=== PATIENT | female | born 1995 | race Caucasian/White ===

== ENCOUNTER 2018-11-09 04:55 | Inpatient (IN) | payer OTHER ==
[2018-11-09] MEDS: LACTATED RINGERS 1,000 ML IV SCH ×3 (06:00→09:33)
[2018-11-09 06:21] VITALS: RESP 16
[2018-11-09 06:26] LABS: Appearance,Urine Clear (Clear); Bilirubin,Urine Negative (Negative); Blood,Urine Trace (Negative); Color,Urine Light Yellow; Glucose,Urine (UA) Negative (Negative); Ketones,Urine Negative (Negative); Leukocyte Esterase,Urine Moderate (Negative); Mucus,Urine Rare /hpf; Nitrite,Urine Negative (Negative); PH, Urine 6.5 (5.0-8.0); Protein,Urine Negative (Negative); RBC,Urine 8 /hpf (0-5); Specific Gravity,Urine 1.009 (1.001-1.035); Squamous Epithelial Cell,Urine 1 /hpf (0-4); Urobilinogen,Urine <2.0 mg/dL (<2.0); WBC,Urine 24 /hpf (0-5)
[2018-11-09 06:54] LABS: Anisocytosis Slight; Basophils % (A) 0 %; Eosinophils # (A) 0.1 k/uL (0-0.7); Eosinophils % (A) 1 %; HCT 30.7 % (34.0-46.0); HGB 9.3 gm/dL (11.4-16.0); Hypochromasia Marked; Lymphocytes # (A) 1.8 k/uL (1.0-4.8); Lymphocytes % (A) 15 %; MCH 21.1 pg (25.0-35.0); MCHC 30.5 g/dL (31.0-37.0); MCV 69.4 fL (80.0-100.0); Mean Platelet Volume 8.3; Microcytosis Marked; Monocytes # (A) 0.6 k/uL (0-1.0); Monocytes % (A) 5 %; Neutrophils # (A) 9.7 k/uL (1.3-7.7); Neutrophils % (A) 78 %; Platelet Count 289 k/uL (150-450); Poikilocytosis Slight; RBC 4.42 m/uL (3.80-5.40); RDW 16.1 % (11.5-15.5); WBC 12.4 k/uL (4.0-11.0)
[2018-11-09 06:56] LABS: Amphetamine Screen,Urine Not Detected (NotDetected); Barbiturate Screen,Urine Not Detected (NotDetected); Benzodiazepines Screen,Urine Not Detected (NotDetected); Cocaine Screen,Urine Not Detected (NotDetected); Methadone Screen, Urine Not Detected (NotDetected); Opiate Screen,Urine Not Detected (NotDetected); Oxycodone Screen, Urine Not Detected (NotDetected); Phencyclidine Screen,Urine Not Detected (NotDetected); Tricyclic Antidepressant,Urine Not Detected (NotDetected); Urn Cannabinoid Scrn Detected (NotDetected)
[2018-11-09 07:15] LABS: ALT 16 U/L (9-52); AST 20 U/L (14-36); African American GFR (CKD) >90 (>60 ml/min/1.73 sqM); Blood Urea Nitrogen 6 mg/dL (7-17); Glucose 86 mg/dL (74-99); LDH 439 U/L (313-618); Uric Acid 4.1 mg/dL (3.7-7.4)
[2018-11-09] MEDS ORDERED: METHYLERGONOVINE 0.2 MG/ML 1 ML AMP IM PRN (07:38)
[2018-11-09] MEDS ORDERED: OXYTOCIN 10 UNIT/ML 1 ML VIAL IM PRN (07:38)
[2018-11-09] MEDS ORDERED: LIDOCAINE 0.5% (PF) 5 MG/ML (50 ML SDV) SQ PRN (07:38)
[2018-11-09] MEDS ORDERED: CARBOPROST TROMETHAMINE 250 MCG/ML 1 ML AMP IM PRN (07:38)
[2018-11-09] MEDS ORDERED: TERBUTALINE 1 MG/ML VIAL SQ PRN (07:38)
[2018-11-09] MEDS ORDERED: PENICILLIN G POTASSIUM 5,000,000 UNIT in DEXTROSE 5% IN WATER 100 ML IVPB STA ×2 (07:38)
[2018-11-09] MEDS ORDERED: OXYTOCIN 30 UNITS/500 ML NS 30 UNIT in SALINE 1 500ML.BAG IV SCH (07:45)
[2018-11-09 08:16] VITALS: BMI 34.2
--- NOTE | 2018-11-09 08:24 | P.HPOB ---
History of Present Illness H&P Date: 11/09/18 Chief Complaint: Strong regular uterine contractions This is a 22-year-old white female 1 para 0 EDC 11/01/2018 at 41 and one sevenths weeks' gestation. Patient presents with limited care, last visit early July. She states she moved to [place] from [place] and was not able to establish with physician. She states fetus is been active throughout the . She denied any issues with her care. Past medical history patient states is negative. Past surgical history patient states is negative. Family history patient states is possible for "everyone in my family has cancer". She denies any personal history of cancer. Social history patient smokes tobacco 1 pack per day for 4 years. She also smokes marijuana 3 times a day which she states is for medicinal purposes. This is now prescribed by a physician but obtained socially. She is unmarried, the father of the baby is not involved with this . She is living currently in [facility] with a boyfriend. She denies alcohol use. history is unknown, records are being requested from [place]. On exam she is 5 foot 5 inches, 206 pounds, initial blood pressure is slightly high at 140s over 90s. She has 6 tattoos across her body,nursing and ear piercings. Hair is dyed green. Chest is clear in all nazario. Extremities reveal trace edema. Cervix is 3-4 cm dilated, 90% effaced, -2 station, vertex. Artificial amniorrhexis revealed clear fluid. heart rate is consistent with reactive NST. Uterine contractions are occurring every 3-4 minutes apart. Impression: 41 and one sevenths weeks intrauterine , limited care, active spontaneous labor. Initial blood pressure slightly elevated. Lab work otherwise essentially within normal limits. records have been requested from [place]. Plan: Penicillin G prophylaxis per hospital protocol. Oxytocin augmentation as needed. Close maternal and surveillance. Anticipate normal spontaneous vaginal delivery. Review of Systems Constitutional: Reports as per HPI Past Medical History Past Medical History: Hypertension History of Any Multi-Drug Resistant Organisms: None Reported Past Surgical History: No Surgical Hx Reported Past Anesthesia/Blood Transfusion Reactions: No Reported Reaction Past Psychological History: No Psychological Hx Reported Smoking Status: Current every day smoker - Past Family History Mother Family Medical History: Cancer Medications and Allergies Home Medications and Allergies Comment(s): Marijuana smoked 3 times daily. Patient states this is for medicinal purposes but she does not have a prescription from a physician. Home Medications Medication Instructions Recorded Confirmed Type No Known Home Medications 11/09/18 11/09/18 History Allergies Allergy/AdvReac Type Severity Reaction Status Date / Time No Known Allergies Allergy Verified 11/09/18 05:11 Exam Vital Signs Temp Pulse Resp BP Pulse Ox 11/09/18 07:46 97.4 F L 93 16 149/84 97 11/09/18 05:11 97.4 F L 86 16 141/93 Intake and Output 11/08/18 11/09/18 11/09/18 22:59 06:59 14:59 Other: Weight 93.44 kg See dictation under HPI please Results Result Diagrams: 11/09/18 06:25 11/09/18 06:25 Abnormal Lab Results - Last 24 Hours (Table) 11/09/18 11/09/18 11/09/18 Range/Units 05:46 05:46 06:25 WBC 12.4 H (4.0-11.0) k/uL Hgb 9.3 L (11.4-16.0) gm/dL Hct 30.7 L (34.0-46.0) % MCV 69.4 L (80.0-100.0) fL MCH 21.1 L (25.0-35.0) pg MCHC 30.5 L (31.0-37.0) g/dL RDW 16.1 H (11.5-15.5) % Neutrophils # 9.7 H (1.3-7.7) k/uL BUN (7-17) mg/dL Urine Blood Trace H (Negative) Ur Leukocyte Esterase Moderate H (Negative) Urine RBC 8 H (0-5) /hpf Urine WBC 24 H (0-5) /hpf Urine Mucus Rare H (None) /hpf U Marijuana (THC) Screen Detected H (NotDetected) 11/09/18 Range/Units 06:25 WBC (4.0-11.0) k/uL Hgb (11.4-16.0) gm/dL Hct (34.0-46.0) % MCV (80.0-100.0) fL MCH (25.0-35.0) pg MCHC (31.0-37.0) g/dL RDW (11.5-15.5) % Neutrophils # (1.3-7.7) k/uL BUN 6 L (7-17) mg/dL Urine Blood (Negative) Ur Leukocyte Esterase (Negative) Urine RBC (0-5) /hpf Urine WBC (0-5) /hpf Urine Mucus (None) /hpf U Marijuana (THC) Screen (NotDetected) Assessment and Plan Assessment: 41 and one sevenths week intrauterine , limited care. Marijuana smoker 3 times daily. Active labor. All signs otherwise reassuring. Plan: Close maternal and surveillance. Penicillin G per hospital protocol. Urine drug screen. convention services manager consult. records requested. Analgesic options reviewed. Anticipate normal spontaneous vaginal delivery. Time with Patient: Greater than 30
[2018-11-09] MEDS ORDERED: ROPIVACAINE 5MG/ML 20ML VIAL ONE (08:58)
[2018-11-09] MEDS ORDERED: SODIUM CHLORIDE 0.9% 100 ML BAG ONE (08:58)
[2018-11-09] MEDS ORDERED: fentaNYL (PF) 50 MCG/ML 5 ML AMP ONE (08:58)
[2018-11-09] MEDS ORDERED: ROPIVACAINE 100 MG, fentaNYL (PF) 200 MCG in SODIUM CHLORIDE 0.9% 76 ML EPIDURAL ONE (09:20)
[2018-11-09] MEDS: PENICILLIN G POTASSIUM 2,500,000 UNIT in DEXTROSE 5% IN WATER 100 ML IVPB SCH ×6 (12:46→20:33)
[2018-11-09 13:26] LABS: HIV 1 AB Non-Reactive (Non-Reactive); HIV AB P24 Non-Reactive (Non-Reactive); HIV P24 AG Non-Reactive (Non-Reactive)
[2018-11-09] MEDS ORDERED: ZOLPIDEM 5 MG TAB PO PRN (14:27)
[2018-11-09] MEDS ORDERED: IBUPROFEN 600 MG TAB PO PRN (14:27)
[2018-11-09] MEDS ORDERED: ACETAMINOPHEN TAB 325 MG TAB PO PRN (14:27)
[2018-11-09] MEDS ORDERED: HYDROCORTISONE 2.5% RECTAL CREAM 30 GM TUBE RECTAL PRN (14:27)
[2018-11-09] MEDS ORDERED: WITCH HAZEL 1 EACH MED..PAD TOPICAL PRN (14:27)
[2018-11-09] MEDS ORDERED: diphenhydrAMINE 25 MG CAP PO PRN (14:27)
[2018-11-09] MEDS ORDERED: SIMETHICONE 80 MG CHEWABLE PO PRN (14:27)
[2018-11-09] MEDS ORDERED: diphenhydrAMINE 50 MG/ML 1 ML VIAL IVP PRN ×2 (14:27)
[2018-11-09] MEDS ORDERED: diphenhydrAMINE 50 MG CAP PO PRN (14:27)
[2018-11-09] MEDS ORDERED: LANOLIN CREAM 5 GM TUBE TOPICAL PRN (14:27)
[2018-11-09] MEDS ORDERED: BENZOCAINE/MENTHOL SPRAY 1 GM/SPRAY AEROSOL TOPICAL PRN (14:27)
--- NOTE | 2018-11-09 14:27 | P.PROBDLV ---
Vaginal Delivery Note - . Vaginal Delivery Note: This is a 22-year-old white female 1 para 0 EDC 11/01/2018 at 41 and one sevenths weeks' gestation. Patient presented with limited care, no physician visits since July. She complained of strong regular uterine contractions and was judged to be in active labor. records were requested, and limited records received. Blood type A positive, rubella status nonimmune. Group B strep status unknown. Please see dictated history and physical for details. Artificial amniorrhexis revealed clear fluid. Initial blood pressures were slightly elevated, 149/84, but these normalized after admission. Penicillin G prophylaxis was given, 2 doses received. Patient requested epidural and this was placed without issue. She progressed well through the first stage of labor was judged to be completely dilated at 1350 hrs. Perineal body was prepped and draped in usual sterile fashion at that time. Patient was coached on pushing, and with excellent maternal expulsive efforts the infant's head delivered occiput anterior. She restituted accordingly. There was no nuchal cord noted. The right or anterior shoulder was gently delivered from underneath the pubic symphysis at which time the oropharynx, nasopharynx, and external nares were all bulb suctioned. Patient was officially delivered of a liveborn female infant at 1411 hours. Umbilical cord was doubly clamped and ligated, she was handed to waiting nurses for evaluation where scores of 8 and 9 at one and 5 minutes respectively were given. Placenta delivered spontaneously, it was inspected and noted to be intact with trivascular cord at 1414 hours. It was sent to pathology for evaluation as patient's care is unknown to me, and she is postdates. The placenta did have a calcified ring around its periphery per inspection. The uterus is massaged. Inspection of the cervix, vagina, perineum, periurethral, and perirectal areas revealed 2 small first-degree perineal lacerations on either labia. These were each repaired with a single [id number] of 3-0 Vicryl. Total estimated blood loss 250 mL's. Urine drug screen is positive for marijuana. visitor services assistant consult has been placed. care at this time. Possible discharge home tomorrow.
[2018-11-09] MEDS ORDERED: OXYTOCIN 20 UNITS/1000 ML NS 1,000 ML IV SCH (14:30)
[2018-11-09] MEDS ORDERED: MEASLES-MUMPS-RUBELLA VACC/PF 12,500 UNIT/0.5 ML VIAL SQ ONE (18:43)
[2018-11-09] MEDS ORDERED: SENNOSIDES-DOCUSATE SODIUM 1 EACH TAB PO SCH (20:00)
--- NOTE | 2018-11-10 07:52 | P.DS ---
Providers Date of admission: 11/09/18 07:27 Expected date of discharge: 11/10/18 Attending physician: Chelsea Landa Primary care physician: Stated None Hospital Course: This is a 22-year-old white female 1 para 0 EDC 11/01/2018 at 41 and one sevenths weeks' gestation. Patient had limited care in [place], last visit in July. She presents to me unknown, in active spontaneous labor. Her history is significant for marijuana use 3 times a day, substantiated by positive urine drug screen. records were obtained. Blood type A+, rubella status nonimmune. Group B strep status unknown. Please see dictated history and physical for details. Artificial amniorrhexis revealed clear fluid. Oxytocin was started and titrated per hospital protocol. Epidural was placed per her request. She went on to deliver vaginally a liveborn female infant with scores of 8 and 9 at one and 5 minutes respectively. Patient did receive 2 doses of penicillin G per our protocol, for unknown group B strep status. Infant weighed 7 lbs. 9 oz. or 3435 g. There was an estimated blood loss recorded of 250 mL's. A small first- degree perineal laceration easily repaired. Please see my dictated delivery note for details. This morning the patient is doing well. She is voiding, and bleeding, passing flatus without difficulty. Breast-feeding is going well. [place] infant has been seen by filter worker. dining services manager consult has been ordered but is still pending. Patient is otherwise judged to be in good condition for discharge home. Breasts are not engorged, perineum is clean and dry, lochia rubra is moderate, fundus is firm and midline, symmetric, 18 week size. Extremities are negative for edema. Patient will follow-up in the office with me in 6 weeks. I have reminded her no intercourse, tampons or douching. She will use [id number] Advil or Aleve as needed for pain. She will call with any fevers shakes or chills, foul smelling or copious lochia, with the passage of large blood clots, with any pain not alleviated by cqan-pis-qehkvye products, or indeed with any concerns. We have briefly reviewed options for contraception and we will review this further in the office. Patient Condition at Discharge: Good Plan - Discharge Summary Discharge Rx Participant: No New Discharge Prescriptions: No Action No Known Home Medications Discharge Medication List No Known Home Medications 11/09/18 [History] Follow up Appointment(s)/Referral(s): Chelsea Landa MD [STAFF PHYSICIAN] - 6 Weeks Discharge Disposition: HOME SELF-CARE
[2018-11-10 08:31] VITALS: BP 136/79; PULSE 88; TEMP 98.3
[2018-11-10 15:39] LABS: C. trachomatis,PCR Negative (Neg,Equiv); Chlamydia trachomatis Source Urine; N. gonorrhoeae,PCR Negative (Neg,Equiv); Neisseria Source Urine
== END 2018-11-10 16:08 | disposition home or self-care (01) | DRG 806 ==
LOC: FBPOP 04:55 → 4FBP 07:27
PROVIDERS: ADMIT Obstetrics & Gynecology; ATTEND Obstetrics & Gynecology
PROC: 10E0XZZ Delivery of Products of Conception, External Approach (ICD-10-PCS; principal; 2018-11-09)
PROC: 0HQ9XZZ Repair Perineum Skin, External Approach (ICD-10-PCS; 2018-11-09)
PROC: 00HU33Z Insertion of Infusion Device into Spinal Canal, Percutaneous Approach (ICD-10-PCS; 2018-11-09)
PROC: 3E0R3BZ Introduction of Anesthetic Agent into Spinal Canal, Percutaneous Approach (ICD-10-PCS; 2018-11-09)
PROC: 3E0134Z Introduction of Serum, Toxoid and Vaccine into Subcutaneous Tissue, Percutaneous Approach (ICD-10-PCS; 2018-11-09)
DX: O48.0 Post-term pregnancy (principal); O99.324 Drug use complicating childbirth; Z37.0 Single live birth; O10.92 Unspecified pre-existing hypertension complicating childbirth; Z3A.41 41 weeks gestation of pregnancy; O70.0 First degree perineal laceration during delivery; Z23 Encounter for immunization; F12.90 Cannabis use, unspecified, uncomplicated; O99.334 Smoking (tobacco) complicating childbirth; F17.210 Nicotine dependence, cigarettes, uncomplicated; Z80.9 Family history of malignant neoplasm, unspecified
CPT/HCPCS: 59025; 80306; 81001; 82565; 82947; 83615; 84112; 84450; 84460; 84520; 84550; 85025; 86762; 86780; 86850; 86900; 86901; 87340; 87390; 87491; 87591; 90471; 90707; 99213

== ENCOUNTER → 2019-07-07 | Outpatient (CLI) | payer OTHER ==
--- NOTE | 2019-07-07 09:01 | XR ---
EXAMINATION TYPE: XR lumbar spine 2 or 3V DATE OF EXAM: 07/07/2019 COMPARISON: None HISTORY: Low back pain TECHNIQUE: Three-view lumbar spine FINDINGS: There 5 lumbar-type vertebral bodies. Pedicles are intact. Disc heights are preserved. Vert ebral body heights are preserved. There is attempted sacralization of L5 on the left. IMPRESSION: 1. Normal lumbar spine
--- NOTE | 2019-07-07 15:32 | XR ---
EXAMINATION TYPE: XR cervical spine comp DATE OF EXAM: 07/07/2019 COMPARISON: None HISTORY: Five-view cervical spine TECHNIQUE: Cervical spine is examined in 5 views. FINDINGS: No acute fractures are evident. Disc heights are preserved. Vertebral body heights are pres erved. Foramen are patent. IMPRESSION: 1. Normal cervical spine.
== END | disposition home or self-care (01) ==
LOC: RADXRMAIN 07:48
PROVIDERS: ATTEND Nurse Practitioner Adult Health
DX: M54.12 Radiculopathy, cervical region (principal); M54.17 Radiculopathy, lumbosacral region
CPT/HCPCS: 72050; 72100

== ENCOUNTER 2020-03-18 11:31 | Emergency (ER) | payer OTHER ==
[2020-03-18 11:40] VITALS: BP 148/84; PULSE 94; RESP 20; TEMP 98.9
--- NOTE | 2020-03-18 11:47 | ED ---
General Adult HPI - General Chief complaint: Recheck/Abnormal Lab/Rx Stated complaint: needs work note Time Seen by Provider: 03/18/20 11:41 Source: patient, RN notes reviewed Mode of arrival: ambulatory Limitations: no limitations - History of Present Illness Initial comments: 24-year-old female presented emergency department with chief complaint of ne eding work note to return to work. Patient states she had a cough on Wednesday and was sent home. Patient states she is a smoker and has chronic cough she has no fever no chills no runny nose or shortness breath no bodyaches no sick contacts patient offers no other complaints. Patient is asymptomatic. - Related Data Home Medications Medication Instructions Recorded Confirmed No Known Home Medications 11/09/18 11/09/18 Allergies Allergy/AdvReac Type Severity Reaction Status Date / Time No Known Allergies Allergy Verified 03/18/20 11:39 Review of Systems ROS Statement: Those systems with pertinent positive or pertinent negative responses have been documented in the HPI. ROS Other: All systems not noted in ROS Statement are negative. Past Medical History Past Medical History: Hypertension History of Any Multi-Drug Resistant Organisms: None Reported Past Surgical History: No Surgical Hx Reported Past Anesthesia/Blood Transfusion Reactions: No Reported Reaction Past Psychological History: No Psychological Hx Reported Smoking Status: Current every day smoker Past Alcohol Use History: None Reported Past Drug Use History: Marijuana - Past Family History Mother Family Medical History: Cancer General Exam Limitations: no limitations General appearance: alert, in no apparent distress Head exam: Present: atraumatic, normocephalic, normal inspection Eye exam: Present: normal appearance, PERRL, EOMI. Absent: scleral icterus, conjunctival injection, periorbital swelling ENT exam: Present: normal exam, normal oropharynx, mucous membranes moist Neck exam: Present: normal inspection, full ROM. Absent: tenderness, meningismus, lymphadenopathy Respiratory exam: Present: normal lung sounds bilaterally. Absent: respiratory distress, wheezes, rales, rhonchi, stridor Cardiovascular Exam: Present: regular rate, normal rhythm, normal heart sounds. Absent: systolic murmur, diastolic murmur, rubs, gallop, clicks Course Vital Signs 03/18/20 11:37 Temperature 98.9 F Pulse Rate 94 Respiratory 20 Rate Blood Pressure 148/84 O2 Sat by Pulse 99 Oximetry Medical Decision Making - Medical Decision Making Patient was asymptomatic has no signs of infection. Patient will return to work today. Disposition Clinical Impression: Return to work evaluation Disposition: HOME SELF-CARE Condition: Stable Additional Instructions: Please return to the Emergency Department if symptoms worsen or any other concerns. Is patient prescribed a controlled substance at d/c from ED?: No Referrals: None,Stated [Primary Care Provider] - 1-2 days Time of Disposition: 11:47
== END 2020-03-18 11:56 | disposition home or self-care (01) ==
LOC: EC 11:31
DX: Z02.1 Encounter for pre-employment examination (principal); F17.200 Nicotine dependence, unspecified, uncomplicated
CPT/HCPCS: 99282

== ENCOUNTER 2021-01-13 09:38 | Inpatient (IN) | payer OTHER ==
[2021-01-13] MEDS ORDERED: OXYTOCIN 10 UNIT/ML 1 ML VIAL IM PRN (10:19)
[2021-01-13] MEDS ORDERED: LIDOCAINE 0.5% (PF) 5 MG/ML (50 ML SDV) SQ PRN (10:19)
[2021-01-13] MEDS ORDERED: TERBUTALINE 1 MG/ML VIAL SQ PRN (10:19)
[2021-01-13] MEDS ORDERED: CARBOPROST TROMETHAMINE 250 MCG/ML 1 ML AMP IM PRN (10:19)
[2021-01-13] MEDS ORDERED: METHYLERGONOVINE 0.2 MG/ML 1 ML AMP IM PRN (10:19)
[2021-01-13] MEDS ORDERED: OXYTOCIN 30 UNITS/500 ML NS 30 UNIT in SALINE 1 500ML.BAG IV SCH ×2 (10:30→15:15)
[2021-01-13 11:46] LABS: Anisocytosis Slight; Basophils % (A) 0 %; Eosinophils # (A) 0.1 k/uL (0-0.7); Eosinophils % (A) 1 %; HGB 11.1 gm/dL (11.4-16.0); Hypochromasia Moderate; Lymphocytes # (A) 1.5 k/uL (1.0-4.8); Lymphocytes % (A) 12 %; MCH 23.4 pg (25.0-35.0); MCHC 31.7 g/dL (31.0-37.0); MCV 73.8 fL (80.0-100.0); Mean Platelet Volume 8.4; Microcytosis Slight; Monocytes # (A) 0.7 k/uL (0-1.0); Monocytes % (A) 6 %; Neutrophils # (A) 10.1 k/uL (1.3-7.7); Neutrophils % (A) 80 %; Platelet Count 289 k/uL (150-450); Poikilocytosis Slight; RBC 4.75 m/uL (3.80-5.40); RDW 16.9 % (11.5-15.5); WBC 12.6 k/uL (3.8-10.6)
[2021-01-13] MEDS ORDERED: ROPIVACAINE 5MG/ML 20ML VIAL ONE (12:03)
[2021-01-13] MEDS ORDERED: fentaNYL (PF) 50 MCG/ML 5 ML AMP ONE (12:03)
[2021-01-13] MEDS ORDERED: SODIUM CHLORIDE 0.9% 100 ML BAG ONE (12:03)
[2021-01-13] MEDS ORDERED: ROPIVACAINE 100 MG, fentaNYL (PF). 200 MCG in SODIUM CHLORIDE 0.9% 76 ML EPIDURAL ONE (12:37)
[2021-01-13] MEDS ORDERED: HYDROCORTISONE 2.5% RECTAL CREAM 30 GM TUBE RECTAL PRN (15:01)
[2021-01-13] MEDS ORDERED: BENZOCAINE/MENTHOL SPRAY 1 GM/SPRAY AEROSOL TOPICAL PRN (15:01)
[2021-01-13] MEDS ORDERED: SIMETHICONE 80 MG CHEWABLE PO PRN (15:01)
[2021-01-13] MEDS ORDERED: diphenhydrAMINE 50 MG CAP PO PRN (15:01)
[2021-01-13] MEDS ORDERED: diphenhydrAMINE 50 MG/ML 1 ML VIAL IVP PRN ×2 (15:01)
[2021-01-13] MEDS ORDERED: HYDROcodone/APAP 5-325MG 1 EACH TAB PO PRN (15:01)
[2021-01-13] MEDS ORDERED: HYDROcodone/APAP 7.5-325MG 1 EACH TAB PO PRN (15:01)
[2021-01-13] MEDS ORDERED: ZOLPIDEM 5 MG TAB PO PRN (15:01)
[2021-01-13] MEDS ORDERED: diphenhydrAMINE 25 MG CAP PO PRN (15:01)
--- NOTE | 2021-01-13 15:06 | P.HPOB ---
History of Present Illness H&P Date: 01/13/21 Chief Complaint: 41-0/7 weeks, early labor The patient is a 25-year-old 3 para 1011 admitted at 41-0/7 weeks as established by a 23 week ultrasound. She is admitted in early active labor with all signs reassuring in the category 1 heart rate tracing. Her was complicated only by late presentation for care at 23 weeks. She additionally was a smoker and admitted to marijuana during the . Group B strep status is negative. Obstetrical history: 3 para 1011 with 1 term vaginal delivery in 1 early miscarriage not requiring D&C. Current statistics are listed in history of present illness. EDC of 01/06/2021 was established by 23 week ultrasound. Laboratory workup demonstrates a blood type of A+ with a negative antibody screen. Rubella status is immune. The remainder of the laboratory workups within normal limits. One hour Glucola was normal and group B strep status is negative. Gynecologic history: Unremarkable with no history of any infections to include STDs. Review of Systems Review of systems is confined to history of present illness. Past Medical History Past Medical History: Hypertension History of Any Multi-Drug Resistant Organisms: None Reported Past Surgical History: No Surgical Hx Reported Past Anesthesia/Blood Transfusion Reactions: No Reported Reaction Past Psychological History: No Psychological Hx Reported Smoking Status: Current every day smoker Past Alcohol Use History: None Reported Past Drug Use History: Marijuana - Past Family History Mother Family Medical History: Cancer Medications and Allergies Home Medications Medication Instructions Recorded Confirmed Type Pnv,Calcium 72/Iron/Folic Acid 1 tab PO DAILY 01/13/21 01/13/21 History [ Plus Tablet] Allergies Allergy/AdvReac Type Severity Reaction Status Date / Time No Known Allergies Allergy Verified 03/18/20 11:39 Exam Vital Signs Temp Pulse Resp BP 01/13/21 12:51 97.1 F L 94 16 140/82 Intake and Output 01/13/21 01/13/21 01/13/21 06:59 14:59 22:59 Other: Weight 99.79 kg In general, this is a well-developed, well-nourished white female in no acute distress though she is in labor. Her heart has a regular rhythm and rate without murmur. Her lungs clear to auscultation bilaterally in all nazario. Her abdomen is gravid, nondistended, has normal active bowel sounds, soft, nontender, and without any palpable masses aside from uterine fundus. Her extremities are without any cyanosis, clubbing, or significant edema and are nontender to palpation bilaterally. Digital cervical examination time of admission demonstrated cervix to be 37 m dilated, 50-60% effaced, the vertex in presentation at -2 station. Results Result Diagrams: 01/13/21 11:00 Abnormal Lab Results - Last 24 Hours (Table) 01/13/21 Range/Units 11:00 WBC 12.6 H (3.8-10.6) k/uL Hgb 11.1 L (11.4-16.0) gm/dL MCV 73.8 L (80.0-100.0) fL MCH 23.4 L (25.0-35.0) pg RDW 16.9 H (11.5-15.5) % Neutrophils # 10.1 H (1.3-7.7) k/uL Assessment and Plan (1) Post-dates Current Visit: Yes Status: Acute Code(s): O48.0 - POST-TERM SNOMED Code(s): 71386492 (2) Active labor at term Current Visit: Yes Status: Acute Code(s): ZIH2758 - SNOMED Code(s): 04155098 Plan: The patient is admitted for active management of labor. She will have artificial rupture of membranes carried out at the earliest convenient time. She'll continue to have close maternal and surveillance and expectant management will be practiced. She is a good candidate for either IV or epidural analgesia, whichever she may choose.
--- NOTE | 2021-01-13 15:09 | P.PROBDLV ---
Vaginal Delivery Note - . Vaginal Delivery Note: The patient is a 25-year-old 3 para 1011 admitted at 41-0/7 weeks by midtrimester ultrasound. She is admitted in early labor with all signs reassuring. Her has been uncomplicated aside from late presentation at 23 weeks. On labor and delivery, she has a category 1 heart rate tracing. She had an epidural catheter placed for analgesia and underwent artificial rupture of membranes demonstrating lightly meconium-stained fluid. She progressed fairly quickly through the active phase of labor to complete and then delivered precipitously in my absence as she was pushing involuntarily. I arrived in the delivery suite approximately 1 minute after delivery. She had delivered a viable 7 lbs. 14 oz. baby girl with Apgars of 8 at 1 minute and 9 at 5 minutes in the occiput anterior position. The placenta had not yet been delivered and was delivered spontaneously, intact, and grossly normal the lightly meconium-stained with a grossly normal three-vessel cord inserted approximate 3 cm from the margin of the placental disc. There were no l acerations of the perineum, vagina, or cervix. Estimated blood loss for the entire case was approximately 100 mL. There were no complications aside from the precipitous nature of the delivery. Both mother and are resting comfortably in recovery. All sponge, history, and needle counts were correct.
[2021-01-13] MEDS: ACETAMINOPHEN TAB 325 MG TAB PO PRN (16:23)
[2021-01-13] MEDS: IBUPROFEN 600 MG TAB PO PRN (17:09)
[2021-01-13] MEDS ORDERED: SENNOSIDES-DOCUSATE SODIUM 1 EACH TAB PO SCH (20:00)
[2021-01-13] MEDS: LACTATED RINGERS 1,000 ML IV SCH (21:04)
[2021-01-14] MEDS: IBUPROFEN 600 MG TAB PO PRN ×2 (00:39→07:26)
[2021-01-14 05:19] LABS: Anisocytosis Slight; Basophils % (A) 0 %; Eosinophils # (A) 0.1 k/uL (0-0.7); Eosinophils % (A) 1 %; HCT 31.5 % (34.0-46.0); HGB 10.2 gm/dL (11.4-16.0); Hypochromasia Slight; Lymphocytes # (A) 2.5 k/uL (1.0-4.8); Lymphocytes % (A) 22 %; MCH 23.9 pg (25.0-35.0); MCHC 32.4 g/dL (31.0-37.0); MCV 73.7 fL (80.0-100.0); Mean Platelet Volume 9.4; Microcytosis Moderate; Monocytes # (A) 0.7 k/uL (0-1.0); Monocytes % (A) 6 %; Neutrophils # (A) 7.5 k/uL (1.3-7.7); Neutrophils % (A) 68 %; Platelet Count 280 k/uL (150-450); Poikilocytosis Slight; RBC 4.27 m/uL (3.80-5.40); RDW 16.9 % (11.5-15.5); WBC 11.1 k/uL (3.8-10.6)
--- NOTE | 2021-01-14 09:35 | P.DS ---
Providers Date of admission: 01/13/21 10:27 Expected date of discharge: 01/14/21 Attending physician: Rl Us Primary care physician: Stated None - Discharge Diagnosis(es) (1) Post-dates Current Visit: Yes Status: Acute (2) Active labor at term Current Visit: Yes Status: Acute (3) Normal spontaneous vaginal delivery Current Visit: Yes Status: Acute Hospital Course: The patient is a 25-year-old 3 para 1011 admitted at 41-0/7 weeks by a 23 week ultrasound. She is admitted in early active labor with all signs reassuring. Her was, located only by late presentation as well as smoking with admission of use of marijuana during the . Group B strep status was negative. On labor and delivery, she had artificial rupture of membranes carried out demonstrating lightly meconium-stained fluid. She had an epidural catheter placed for analgesia and then progressed fairly quickly to complete and then had a precipitous delivery in my absence of a viable 7 lbs. 14 oz. baby girl with Apgars of 8 at 1 minute and 9 at 5 minute. Her course was unremarkable vital signs remaining stable and her temperature was afebrile throughout. She was deemed stable for discharge on day #1 was discharged home to follow-up in the office in 6 weeks' time routinely. Discharge instructions included calling for any significantly increased bleeding or foul-smelling lochia, significantly increased fever abdominal pain, perineal complaints, breast complaints, or anything also concerned her. She is additionally instructed to have nothing in the vagina for at least 6 weeks time to include intercourse. She understood her instructions and agrees follow up as noted above. Discharge medications included only yhzi-shs-aoqyrvo analgesic pain medications as needed. Maternal blood type is A+ and rubella status is immune. Procedures: #1. Artificial rupture of membranes #2. Epidural analgesia #3. Normal spontaneous vaginal delivery Patient Condition at Discharge: Stable Plan - Discharge Summary New Discharge Prescriptions: No Action Pnv,Calcium 72/Iron/Folic Acid [ Plus Tablet] 1 tab PO DAILY Discharge Medication List Pnv,Calcium 72/Iron/Folic Acid [ Plus Tablet] 1 tab PO DAILY 01/13/21 [History] Follow up Appointment(s)/Referral(s): Rl Us MD [STAFF PHYSICIAN] - 6 Weeks Discharge Disposition: HOME SELF-CARE
[2021-01-14] MEDS: ACETAMINOPHEN TAB 325 MG TAB PO PRN (12:09)
[2021-01-14 16:36] VITALS: BP 122/64; PULSE 87; RESP 18; TEMP 97.8
== END 2021-01-14 16:40 | disposition home or self-care (01) | DRG 806 ==
LOC: FBPOP 09:38 → 4FBP 10:27
PROVIDERS: ADMIT Obstetrics & Gynecology; ATTEND Obstetrics & Gynecology
PROC: 10E0XZZ Delivery of Products of Conception, External Approach (ICD-10-PCS; principal; 2021-01-13)
PROC: 10907ZC Drainage of Amniotic Fluid, Therapeutic from Products of Conception, Via Natural or Artificial Opening (ICD-10-PCS; 2021-01-13)
PROC: 4A0HX4Z Measurement of Products of Conception, Cardiac Electrical Activity, External Approach (ICD-10-PCS; 2021-01-13)
DX: O10.92 Unspecified pre-existing hypertension complicating childbirth (principal); O99.324 Drug use complicating childbirth; Z37.0 Single live birth; O48.0 Post-term pregnancy; O77.0 Labor and delivery complicated by meconium in amniotic fluid; F17.210 Nicotine dependence, cigarettes, uncomplicated; F12.90 Cannabis use, unspecified, uncomplicated; O62.3 Precipitate labor; O99.334 Smoking (tobacco) complicating childbirth; Z3A.40 40 weeks gestation of pregnancy
CPT/HCPCS: 85025; 86850; 86900; 86901

== ENCOUNTER → 2022-01-29 | Outpatient (CLI) | payer OTHER ==
--- NOTE | 2022-01-29 15:20 | US ---
EXAMINATION TYPE: US axilla RT DATE OF EXAM: 01/29/2022 COMPARISON: NONE CLINICAL HISTORY: M79.89 RIGHT AXILLARY SWELLING. Intermittent focal swelling for 2 months. In area of focal intermittent swelling, right axilla, a small complex fluid collection with a tract t o the skin is present. Measuring 0.97 x 0.37 x 1.6 cm. The remainder of the right axilla is within normal limits, normal lymph nodes present. IMPRESSION: Dermal-based lesion noted as detailed above. Consider draining sebaceous cysts or other dermatologic etiology. Consider dermatology referral
== END | disposition home or self-care (01) ==
LOC: RADUSWWP 13:40
PROVIDERS: ATTEND Family Medicine
DX: M79.89 Other specified soft tissue disorders (principal)

== ENCOUNTER → 2022-02-05 | Outpatient (CLI) | payer OTHER ==
--- NOTE | 2022-02-05 15:59 | US ---
EXAMINATION TYPE: US mass soft tissue back DATE OF EXAM: 02/05/2022 COMPARISON: NONE CLINICAL HISTORY: 26-year-old female R60.9 SOFT TISSUE SWELLING OF BACK. Palpable area near left hip on lower back for years, not getting bigger, can be painful when pressed TECHNIQUE: Targeted scanning posterior lower back above the at the patient's palpable site. FINDINGS: Supervisor Fruit [employer] notes: Soft tissue scan produces no sonographic abnormality. The provided images show underlying area of shadowing bone likely corresponding to the iliac crest. IMPRESSION: Underlying shadowing bone likely corresponds to the iliac crest. Otherwise, no discrete sonographic a bnormality seen of the superficial tissues. Clinical follow-up versus further imaging as indicated.
== END | disposition home or self-care (01) ==
LOC: RADUSWWP 12:04
PROVIDERS: ATTEND Family Medicine
DX: R60.9 Edema, unspecified (principal)

== ENCOUNTER 2022-12-11 03:40 | Emergency (ER) | payer OTHER ==
[2022-12-11 03:44] VITALS: RESP 22
[2022-12-11] MEDS ORDERED: IBUPROFEN 800 MG TAB PO STA (04:00)
[2022-12-11] MEDS ORDERED: IPRATROPIUM-ALBUTEROL 3 ML NEB INHALATION STA (04:00)
[2022-12-11] MEDS ORDERED: dexAMETHasone 2 MG TAB PO STA (04:00)
[2022-12-11] MEDS ORDERED: ACETAMINOPHEN TAB 500 MG TAB PO STA (04:01)
--- NOTE | 2022-12-11 05:27 | ED ---
SOB HPI - General Chief Complaint: Shortness of Breath Stated Complaint: Asthma Attack / SOB Time Seen by Provider: 12/11/22 03:46 Source: patient, RN notes reviewed, old records reviewed Mode of arrival: wheelchair Limitations: no limitations - History of Present Illness Initial Comments: This is a 27-year-old female to the emergency department for evaluation severe shortness of breath cough and feels like she has severely elevated heart rate lightheadedness and dizziness. Patient states he's been camping in the ears getting to his breathing is getting progressively worsening cough is severe. No history of asthma patient does smoke and does smoke marijuana. No current chest pain patient occasionally has chest pain worse when she lays down sometimes worse when she sits forward. Travel history no sick contacts no significant medical history MD Complaint: shortness of breath -: days(s) Severity: moderate Severity scale (1-10): 5 Consistency: constant Worsens With: nothing Known History Of: asthma (Family history of asthma) Context: recent URI, recent illness Associated Symptoms: denies other symptoms Treatments Prior to Arrival: none - Related Data Home Medications Medication Instructions Recorded Confirmed Vit No.180/Iron/Folic 1 tab PO DAILY 01/13/21 01/13/21 [ Plus Tablet] Previous Rx's Medication Instructions Recorded Albuterol Inhaler [Ventolin Hfa 1 - 2 puff INHALATION Q6H PRN #1 12/11/22 Inhaler] each Azithromycin [Zithromax] 500 mg PO DAILY #5 tab 12/11/22 predniSONE 50 mg PO DAILY #5 tab 12/11/22 Allergies Allergy/AdvReac Type Severity Reaction Status Date / Time No Known Allergies Allergy Verified 03/18/20 11:39 Review of Systems ROS Statement: Those systems with pertinent positive or pertinent negative responses have been documented in the HPI. ROS Other: All systems not noted in ROS Statement are negative. Past Medical History Past Medical History: Hypertension History of Any Multi-Drug Resistant Organisms: None Reported Past Surgical History: No Surgical Hx Reported Past Anesthesia/Blood Transfusion Reactions: No Reported Reaction Past Psychological History: No Psychological Hx Reported Smoking Status: Current every day smoker Past Alcohol Use History: None Reported Past Drug Use History: Marijuana - Past Family History Mother Family Medical History: Cancer General Exam Limitations: no limitations General appearance: alert, in no apparent distress Head exam: Present: atraumatic, normocephalic, normal inspection Eye exam: Present: normal appearance, PERRL, EOMI. Absent: scleral icterus, conjunctival injection, periorbital swelling ENT exam: Present: normal exam, mucous membranes moist Neck exam: Present: normal inspection. Absent: tenderness, meningismus, lymphadenopathy Respiratory exam: Present: normal lung sounds bilaterally. Absent: respiratory distress, wheezes, rales, rhonchi, stridor Cardiovascular Exam: Present: regular rate, normal rhythm, normal heart sounds. Absent: systolic murmur, diastolic murmur, rubs, gallop, clicks GI/Abdominal exam: Present: soft, normal bowel sounds. Absent: distended, tenderness, guarding, rebound, rigid Extremities exam: Present: normal inspection, full ROM, normal capillary refill. Absent: tenderness, pedal edema, joint swelling, calf tenderness Back exam: Present: normal inspection Neurological exam: Present: alert, oriented X3, CN II-XII intact Psychiatric exam: Present: normal affect, normal mood Skin exam: Present: warm, dry, intact, normal color. Absent: rash Course Vital Signs 12/11/22 12/11/22 12/11/22 03:41 05:48 05:58 Temperature 97.5 F L Pulse Rate 112 H 71 77 Respiratory 22 Rate Blood Pressure 124/77 O2 Sat by Pulse 95 Oximetry 12/11/22 06:26 Temperature 98.5 F Pulse Rate 119 H Respiratory 22 Rate Blood Pressure 137/74 O2 Sat by Pulse 96 Oximetry - Reevaluation(s) Reevaluation #1: 12/11/22 05:27 Medical records reviewed Reevaluation #2: 12/11/22 05:27 Patient symptoms are improved 12/11/22 06:18 Vital signs are dramatically improved Reevaluation #3: 12/11/22 05:27 Patient informed of results and questions answered Reevaluation #4: 12/11/22 05:27 Was pt. sent in by a medical professional or institution (, PA, SMOKING PIPE MAKER, urgent care, hospital, or long term...) When possible be specific @ -no Did you speak to anyone other than the patient for history (EMS, parent, family, police, friend...)? What history was obtained from this source @ -no Did you review nursing and triage notes (agree or disagree)? Why? @ -agree Are old charts reviewed (outside hosp., previous admission, EMS record, old EKG, old radiological studies, urgent care reports/EKG's, long term records)? Report findings @ -yes Differential Diagnosis (chest pain, altered mental status, abdominal pain women, abdominal pain men, vaginal bleeding, weakness, fever, dyspnea, syncope, headache, dizziness, GI bleed, back pain, seizure, CVA, palpatations, mental health, musculoskeletal)? @ -prior EKG interpreted by me (3pts min.). @ -no X-rays interpreted by me (1pt min.). @ -yes CT interpreted by me (1pt min.). @ -no U/S interpreted by me (1pt. min.). @ -no What testing was considered but not performed or refused? (CT, X-rays, U/S, labs)? Why? @ -none What meds were considered but not given or refused? Why? @ -none Did you discuss the management of the patient with other professionals (professionals i.e. , PA, SMOKING PIPE MAKER, lab, RT, psych nurse, social work professor, rubber moulding machine operator, teacher, duty officer, outpatient case manager)? Give summary @ -no Was smoking cessation discussed for >3mins.? @ -no Was critical care preformed (if so, how long)? @ -no Were there social determinants of health that impacted care today? How? (Bennett elessness, low income, unemployed, alcoholism, drug addiction, transportation, low edu. Level, literacy, decrease access to med. care, fdc, rehab)? @ -none Was there de-escalation of care discussed even if they declined (Discuss DNR or withdrawal of care, Hospice)? DNR status @ -no What co-morbidities impacted this encounter? (DM, HTN, Smoking, COPD, CAD, Cancer, CVA, ARF, Chemo, Hep., AIDS, mental health diagnosis, sleep apnea, morbid obesity)? @ -none Was patient admitted / discharged? Hospital course, mention meds given and route, prescriptions, significant lab abnormalities, going to OR and other pertinent info. @ - 27 female with acute bronchitis versus walking pneumonia, patient improvement with. Treatments here in the ER will go on inhaler steroids at home Discharge Undiagnosed new problem with uncertain prognosis? @ -no Drug Therapy requiring intensive monitoring for toxicity (Heparin, Nitro, Insulin, Cardizem)? @ -no Were any procedures done? @ -no Diagnosis/symptom? @ -Acute bronchitis first walking pneumonia Acute, or Chronic, or Acute on Chronic? @ -Acute Uncomplicated (without systemic symptoms) or Complicated (systemic symptoms)? @ -Complicated Side effects of treatment? @ -no Exacerbation, Progression, or Severe Exacerbation? @ -exacerbation Poses a threat to life or bodily function? How? (Chest pain, [place], GA, pneumonia, PE, COPD, DKA, ARF, appy, cholecystitis, CVA, Diverticulitis, Homicidal, Suicidal, threat to staff... and all critical care pts) @ -no Reevaluation #5: 12/11/22 05:27 Differential Dyspnea: Coronary syndrome, arrhythmia, tamponade, asthma, COPD, pulmonary embolism, pneumonia, pneumothorax, pulmonary effusion, anaphylaxis, diabetic ketoacidosis, flailed chest, pulmonary contusion, diaphragmatic rupture, anemia, neuromuscular, this is not meant to be an all-inclusive list. Medical Decision Making - Medical Decision Making 27 female with acute bronchitis versus walking pneumonia, patient improvement with. Treatments here in the ER will go on inhaler steroids at home - Radiology Data Radiology results: report reviewed (Chest x-rays negative for acute disease), image reviewed Disposition Clinical Impression: Community acquired pneumonia, Acute bronchitis Disposition: HOME SELF-CARE Condition: Good Instructions (If sedation given, give patient instructions): Acute Bronchitis (ED) Prescriptions: predniSONE 50 mg PO DAILY #5 tab Albuterol Inhaler [Ventolin Hfa Inhaler] 1 - 2 puff INHALATION Q6H PRN #1 each PRN Reason: Shortness Of Breath Azithromycin [Zithromax] 500 mg PO DAILY #5 tab Is patient prescribed a controlled substance at d/c from ED?: No Referrals: Harinder Jara MD [Primary Care Provider] - 1-2 days Time of Disposition: 06:00
[2022-12-11] MEDS ORDERED: AZITHROMYCIN 500 MG TAB PO STA (06:16)
[2022-12-11 06:27] VITALS: BP 137/74; PULSE 119; TEMP 98.5
--- NOTE | 2022-12-11 07:04 | XR ---
EXAMINATION TYPE: XR chest 1V portable DATE OF EXAM: 12/11/2022 COMPARISON: NONE HISTORY: Chest pain TECHNIQUE: Single frontal view of the chest is obtained. FINDINGS: There is no focal air space opacity, pleural effusion, or pneumothorax seen. The cardiac silhouette size is within normal limits. The osseous structures are intact. IMPRESSION: 1. No acute process.
== END 2022-12-11 06:27 | disposition home or self-care (01) ==
LOC: SUPCPDRO 03:40 → EC 03:40
DX: J18.9 Pneumonia, unspecified organism (principal); J20.9 Acute bronchitis, unspecified; I10 Essential (primary) hypertension; F17.200 Nicotine dependence, unspecified, uncomplicated; F12.90 Cannabis use, unspecified, uncomplicated
CPT/HCPCS: 94640; 71045; 99285; J8540

== ENCOUNTER 2024-08-06 04:47 | Outpatient (CLI) | payer OTHER ==
[2024-08-06 06:46] LABS: Basophils % (A) 0 %; Eosinophils % (A) 0 %; HCT 34.2 % (34.0-46.0); Hypochromasia Moderate; Lymphocytes # (A) 1.9 k/uL (1.0-4.8); Lymphocytes % (A) 16 %; MCH 23.1 pg (25.0-35.0); MCHC 32.1 g/dL (31.0-37.0); MCV 71.9 fL (80.0-100.0); Mean Platelet Volume 9.1; Microcytosis Slight; Monocytes # (A) 0.6 k/uL (0-1.0); Monocytes % (A) 5 %; Neutrophils # (A) 9.2 k/uL (1.3-7.7); Neutrophils % (A) 77 %; Platelet Count 310 k/uL (150-450); RBC 4.75 m/uL (3.80-5.40); RDW 14.4 % (11.5-15.5); WBC 11.9 k/uL (3.8-10.6)
[2024-08-06 06:57] LABS: Partial Thromboplastin Time 22.2 sec (22.0-30.0); Prothrombin Time 10.7 sec (10.0-12.5)
[2024-08-06 06:58] LABS: ALT 14 U/L (4-34); AST 18 U/L (14-36); African American GFR (CKD) >90 (>60 ml/min/1.73 sqM); Blood Urea Nitrogen 2 mg/dL (7-17); Glucose 81 mg/dL (74-99); LDH 153 U/L (120-246); Non-African American GFR(CKD) >90 (>60 ml/min/1.73 sqM); Uric Acid 3.2 mg/dL (3.7-7.4)
[2024-08-06 07:07] LABS: Appearance,Urine Clear (Clear); Bilirubin,Urine Negative (Negative); Blood,Urine Negative (Negative); Color,Urine Light Yellow; Glucose,Urine (UA) Negative (Negative); Ketones,Urine Negative (Negative); Leukocyte Esterase,Urine Negative (Negative); Nitrite,Urine Negative (Negative); PH, Urine 6.5 (5.0-8.0); Protein,Urine Negative (Negative); Specific Gravity,Urine 1.007 (1.001-1.035); Urobilinogen,Urine <2.0 mg/dL (<2.0)
[2024-08-06 07:13] LABS: Creatinine,Urine Random 62.4 mg/dL; Protein/Creatinine Ratio,Urine 0.288
[2024-08-06 07:19] LABS: Amphetamine Screen,Urine Not Detected (NotDetected); Barbiturate Screen,Urine Not Detected (NotDetected); Benzodiazepines Screen,Urine Not Detected (NotDetected); Cocaine Screen,Urine Not Detected (NotDetected); Methadone Screen, Urine Not Detected (NotDetected); Opiate Screen,Urine Not Detected (NotDetected); Oxycodone Screen, Urine Not Detected (NotDetected); Phencyclidine Screen,Urine Not Detected (NotDetected); Tricyclic Antidepressant,Urine Not Detected (NotDetected); Urn Cannabinoid Scrn Detected (NotDetected)
--- NOTE | 2024-08-06 08:37 | US ---
EXAMINATION TYPE: US OB anatomy transabd DATE OF EXAM: 08/06/2024 COMPARISON: NONE CLINICAL INDICATION: Female, 28 years old with history of 36 wks no care; mild contractions today, no bleeding, TECHNIQUE: OBTA with grayscale imaging of single gestation. FINDINGS: EXAM MEASUREMENTS: GESTATIONAL AGE / DATING Physician Established: No care Dates by LMP: (36 weeks/1 days) EDC: 09/02/2024 Dates by First Scan: last scan at 9 weeks at outside facility Dates by Current Scan for: (35 weeks/2 days) EDC: 09/08/2024 SURVEY IUP: Single PLACENTA: Fundal PREVIA: No previa RAJI: 11.8 cm Normal CERVICAL LENGTH (transabdominal: norm > 3.0cm): unable to visualize, bladder not fully distended BIOMETRY PRESENTATION: Vertex LIE: Longitudinal BPD: 8.6 cm 34 weeks / 4 days HC: 30.9 cm 34 weeks / 4 days AC: 30.9 cm 34 weeks / 5 days FL: 7.2 cm 36 weeks / 6 days ESTIMATED WEIGHT IN GRAMS: 2640 grams ESTIMATED WEIGHT IN LBS/OZ: 5 lbs. 13 oz. WEIGHT PERCENTAGE BASED ON ESTABLISHED DATE: 29 % HC/AC: 1.0 Normal FL/AC: 23 Normal HEART RATE: 132 bpm RHYTHM: Normal ANATOMY SEEN (within normal limits): Four Chamber Heart Stomach Situs Kidneys (bilateral) Bladder Three Vessel Cord Longitudinal Spine Transverse Spine very limited assessment due to age and positioning ANATOMY NOT SEEN: * Lateral Vent (< 1 cm) * Cisterna Magna (< 1.1 cm) * Nuchal Fold (< 0.6 cm) * Cerebellum (varies with age) Choroid Plexus (bilateral) Midline Falx Cavus Septi Pellucidi Arms (bilateral) Legs (bilateral) Cord Insert Nose / Lips Diaphragm Outflow tracts: LVOT/RVOT Suboptimal study due to advanced age. Single live intrauterine gestation identified. Normal cephalic presentation is seen. Anatomical survey shows no obvious abnormality. Significant portions are not ad equately evaluated during real-time scanning. Estimated amniotic fluid index is within normal limits . No placenta previa. biometric measurements are congruent and within normal limits. IMPRESSION: As above. [facility], , 08/06/2024 8:35 AM
[2024-08-06 09:00] VITALS: BP 142/87; PULSE 103; RESP 18; TEMP 97.5
[2024-08-06 09:43] LABS: Hepatitis B Surface Antigen Nonreactive (Nonreactive)
[2024-08-07 12:48] LABS: C. trachomatis,PCR Negative (Negative)
[2024-08-07 13:15] LABS: N. gonorrhoeae,PCR Negative (Negative)
[2024-08-07 16:05] LABS: HIV 2 AB Non-Reactive (Non-Reactive); HIV AB P24 Non-Reactive (Non-Reactive); HIV P24 AG Non-Reactive (Non-Reactive)
== END 2024-08-06 08:51 | disposition home or self-care (01) ==
LOC: FBPOP 04:47
PROVIDERS: ATTEND Obstetrics & Gynecology
DX: Z36.82 Encounter for antenatal screening for nuchal translucency (principal); Z3A.36 36 weeks gestation of pregnancy; O99.333 Smoking (tobacco) complicating pregnancy, third trimester; F12.90 Cannabis use, unspecified, uncomplicated; F17.210 Nicotine dependence, cigarettes, uncomplicated
CPT/HCPCS: 59025; 36415; 86900; 86901; 86762; 82570; 84156; 82565; 83615; 82947; 84450; 84460; 84520; 84550; 85025; 85384; 85610; 85730; 86850; 87340; 81003; 87491; 87591; 86780; 80306; 87081; 87390; 76805; G0463; 76811; 99213

== ENCOUNTER 2024-08-14 14:58 | Outpatient (CLI) | payer OTHER ==
[2024-08-14 19:56] VITALS: BP 141/82; PULSE 90; RESP 18; TEMP 97
--- NOTE | 2024-09-23 20:50 | P.MSEPDOC ---
Presenting Problems - Arrival Data Date of Arrival on Unit: 08/14/24 Time of Arrival on Unit: 15:00 Mode of Transport: Ambulatory - Complaint OB-Reason for Admission/Chief Complaint: NST Medical History - Information : 4 Para: 2 Term: 2 : 0 Abortions: Spontaneous or Elective: 1 Number of Living Children: 2 - Gestational Age Gestational Age by ARASELI (wks/days): 37 Weeks and 2 Days - History Complications: No Care Review of Systems - Review of Systems Constitutional: No problems Breast: No problems ENT: No problems Cardiovascular: No problems Respiratory: No problems Gastrointestinal: No problems Genitourinary: No problems Musculoskeletal: No problems Neurological: No problems Skin: No problems Vital Signs - Temperature Temperature: 97.0 F Temperature Source: Temporal Artery Scan - Pulse Right Brachial Pulse Rate: 90 Pulse Assessment Method: Automatic Cuff - Respirations Respiratory Rate: 18 Oxygen Delivery Method: Room Air O2 Sat by Pulse Oximetry: 97 - Blood Pressure Right Arm Blood Pressure: 141/82 Blood Pressure Mean: 101 Blood Pressure Source: Automatic Cuff Medical Screen Scoring - Uterine Contractions Intensity: Mild Resting: Soft to palpation - Assessment - Baby A Baseline FHR: 135 Heart Rate - NICHD Category: Category I (Normal) NST: Reactive Physician Notification - Physician Notified Physician Notified Date: 08/14/24 Physician Notified Time: 16:30 Physician: Suzanne Schaeffer Order Received: Yes - Notification Comment Comment: D/C Home and follow up with OB in [place] who initiated care Maternal Triage Index - Maternal Triage Index Presenting for scheduled procedure w/no complaint: No - Stat/Priority 1 Stat Priority 1: No - Urgent/Priority 2 Urgent Priority 2: No - Prompt/Priority 3 Prompt Priority 3: No - Non-Urgent/Priority 4 Non-Urgent Priority 4: Yes Criteria Met for Priority 4: NST Disposition - Disposition OB Disposition: Discharge to home Discharge Date: 08/14/24 Discharge Time: 16:50 I agree with the RN Medical Screening Exam: Yes Case reviewed; plan agreed upon as documented in EMR&OBIX.: Yes Diagnosis: RELATED CONDITIONS, UNSPECIFIED, THIRD TRIMESTER
== END 2024-08-14 16:50 | disposition home or self-care (01) ==
LOC: FBPOP 14:58
PROVIDERS: ATTEND Obstetrics & Gynecology
DX: O26.893 Other specified pregnancy related conditions, third trimester (principal); O99.333 Smoking (tobacco) complicating pregnancy, third trimester; F17.200 Nicotine dependence, unspecified, uncomplicated; Z3A.37 37 weeks gestation of pregnancy
CPT/HCPCS: 59025; G0463; 99213

== ENCOUNTER 2024-09-14 00:09 | Outpatient (CLI) | payer OTHER ==
--- NOTE | 2024-09-30 11:17 | P.MSEPDOC ---
Presenting Problems - Arrival Data Date of Arrival on Unit: 09/14/24 Time of Arrival on Unit: 00:09 Mode of Transport: Wheelchair - Complaint OB-Reason for Admission/Chief Complaint: Possible Onset of Labor Comment: Pt arrives to triage with c/o cx 10/24 starting at 1999. Originally states feels Q3 min but while in triage feels 10-30 seconds. Pt states she has care with [facility] [place] Medical History - Information : 5 Para: 2 Term: 2 : 0 Abortions: Spontaneous or Elective: 2 Number of Living Children: 2 - Gestational Age Gestational Age by ARASELI (wks/days): 40 Weeks and 6 Days - History Comment: Limited care Review of Systems - Review of Systems Constitutional: No problems Breast: No problems ENT: No problems Cardiovascular: No problems Respiratory: No problems Gastrointestinal: No problems Genitourinary: No problems Musculoskeletal: No problems Neurological: No problems Skin: No problems Medical Screen Scoring - Cervical Exam Dilation (cm): 1 Effacement (%): 50 Station: -3 Membranes: Intact - Uterine Contractions Resting: Soft to palpation - Assessment - Baby A Baseline FHR: 150 Heart Rate - NICHD Category: Category I (Normal) NST: Reactive Physician Notification - Physician Notified Physician Notified Date: 09/14/24 Physician Notified Time: 01:30 Physician: kaylen Concepcion Order Received: Yes - Notification Comment Comment: Spoke with Dr. Sanders, Pt 40 and 6. DOM with care out of [place]. Presents with cx since 1999 that she is feeling very 10-30 seconds while in triage. SVE 1/thick/high and repeat an hour later is the same. NST reactive, was minimal initially but pt had smoked prior. No cx palpated or traced. Pt has an appointment later today. Order to d/c home and pt to follow up at her [facility] point[facility] today. Maternal Triage Index - Maternal Triage Index Presenting for scheduled procedure w/no complaint: No - Stat/Priority 1 Stat Priority 1: No - Urgent/Priority 2 Urgent Priority 2: No - Prompt/Priority 3 Prompt Priority 3: Yes Criteria Met for Priority 3: Pt arrives to triage with c/o cx 10/24 starting at 1999. Pt states she has care with [facility] in [place] Disposition - Disposition OB Disposition: Discharge to home I agree with the RN Medical Screening Exam: Yes Physician's MSE Comment: I have neither seen nor examined the patient. Case reviewed; plan agreed upon as documented in EMR&OBIX.: Yes Diagnosis: RELATED CONDITIONS, UNSPECIFIED, THIRD TRIMESTER
== END 2024-09-14 01:35 | disposition home or self-care (01) ==
LOC: FBPOP 00:09
PROVIDERS: ATTEND Obstetrics & Gynecology
DX: O26.893 Other specified pregnancy related conditions, third trimester (principal); O99.333 Smoking (tobacco) complicating pregnancy, third trimester; F17.200 Nicotine dependence, unspecified, uncomplicated; Z3A.40 40 weeks gestation of pregnancy
CPT/HCPCS: 59025; G0463; 99213